=== PATIENT | female | born 1940 | race Hispanic/Latino ===

== ENCOUNTER → 2020-07-23 | Outpatient (CLI) | payer OTHER | END | disposition home or self-care (01) | LOC: RAH 08:51 | PROVIDERS: ATTEND Internal Medicine Gastroenterology | DX: R16.1 Splenomegaly, not elsewhere classified (principal); N26.1 Atrophy of kidney (terminal); N28.89 Other specified disorders of kidney and ureter; K74.3 Primary biliary cirrhosis | CPT/HCPCS: 76700; 93975 ==

== ENCOUNTER → 2021-01-17 | Outpatient (CLI) | payer OTHER | END | disposition home or self-care (01) | LOC: SHCH 13:59 | PROVIDERS: ATTEND Internal Medicine Cardiovascular Disease | DX: I08.1 Rheumatic disorders of both mitral and tricuspid valves (principal); R55 Syncope and collapse | CPT/HCPCS: 93306 ==

== ENCOUNTER → 2021-02-05 | Outpatient (CLI) | payer OTHER | END | disposition home or self-care (01) | LOC: OIH 09:28 | PROVIDERS: ATTEND Internal Medicine Cardiovascular Disease | DX: Z13.6 Encounter for screening for cardiovascular disorders (principal) | CPT/HCPCS: 75571 ==

== ENCOUNTER → 2021-09-01 | Outpatient (CLI) | payer MEDICARE | END | disposition home or self-care (01) | LOC: RAH 08:47 | PROVIDERS: ATTEND Internal Medicine Gastroenterology | DX: K74.3 Primary biliary cirrhosis (principal); N28.1 Cyst of kidney, acquired; R16.1 Splenomegaly, not elsewhere classified | CPT/HCPCS: 76700; 93975 ==

== ENCOUNTER → 2022-05-08 | Outpatient (CLI) | payer OTHER | END | disposition home or self-care (01) | LOC: RAH 13:36 | PROVIDERS: ATTEND Internal Medicine Cardiovascular Disease | DX: Z13.6 Encounter for screening for cardiovascular disorders (principal) | CPT/HCPCS: 75571 ==

== ENCOUNTER → 2022-06-17 | Outpatient (CLI) | payer MEDICARE | END | disposition home or self-care (01) | LOC: SHCH 11:18 | PROVIDERS: ATTEND Internal Medicine Cardiovascular Disease | DX: I34.0 Nonrheumatic mitral (valve) insufficiency (principal); R06.00 Dyspnea, unspecified | CPT/HCPCS: 93306 ==

== ENCOUNTER → 2022-06-20 | Outpatient (CLI) | payer MEDICARE ==
[~2022-06-20] MED LIST: REGADENOSON 0.4 MG/5 ML PF SYG IVP SCH
== END | disposition home or self-care (01) ==
LOC: SHCH 08:48
PROVIDERS: ATTEND Internal Medicine Cardiovascular Disease
DX: I25.10 Atherosclerotic heart disease of native coronary artery without angina pectoris (principal); R06.02 Shortness of breath
CPT/HCPCS: 78452; 93017; 96374; J2785; A9500 ×2

== ENCOUNTER → 2023-05-01 | Outpatient (CLI) | payer OTHER ==
[2023-05-01 12:27] LABS: BASOPHILS # (AUTO) 0.01 K/uL (0.00-0.20); BASOPHILS % (AUTO) 0.5 % (0.0-5.0); EOSINOPHILS # (AUTO) 0.05 K/uL (0.00-0.70); EOSINOPHILS % (AUTO) 2.4 % (0.0-8.0); HEMATOCRIT 37.9 % (36-48); LYMPHOCYTES # (AUTO) 0.6 K/uL (1.0-4.8); LYMPHOCYTES % (AUTO) 28.6 % (21.0-51.0); MEAN CORPUSCULAR HEMOGLOBIN 29.2 pg (27.0-33.0); MEAN CORPUSCULAR HGB CONC 32.5 g/dL (32.0-36.0); MONOCYTES # (AUTO) 0.2 K/uL (0.1-1.0); NEUTROPHILS # (AUTO) 1.3 K/uL (1.8-7.7); NEUTROPHILS % (AUTO) 59.5 % (40.0-77.0); PLATELET COUNT (AUTO) 87 K/uL (130-400); RED BLOOD CELL COUNT(AUTO) 4.21 MIL/uL (4.00-5.50); WHITE BLOOD COUNT (AUTO) 2.1 K/uL (4.8-10.8)
[2023-05-01 12:57] LABS: EOSINOPHILS % (MANUAL) 2 % (1-6); LYMPHOCYTES % (MANUAL) 25 % (22-44); MAN.DIFF COMMENT-IMPRESSION MANUAL DIFFERENTIAL; MONOCYTES % (MANUAL) 4 % (2-9); REACTIVE LYMPHOCYTES 3 % (0-0); SEGMENTED NEUTROPHILS % 66 % (40-70); TOTAL CELLS COUNTED 100
[2023-05-01 12:58] LABS: PLATELET MORPHOLOGY COMMENT DECREASED
[2023-05-01 13:06] LABS: ALBUMIN 3.7 g/dL (3.5-5.0); BILIRUBIN,TOTAL 1.1 mg/dL (0.2-1.0); CREATININE 1.2 mg/dL (0.5-1.5); POTASSIUM 3.5 mmol/L (3.5-5.1); TOTAL PROTEIN, SERUM 7.9 g/dL (6.0-8.3)
== END | disposition home or self-care (01) ==
LOC: LAB 10:55
PROVIDERS: ATTEND Physician Assistant
DX: I10 Essential (primary) hypertension (principal); I34.0 Nonrheumatic mitral (valve) insufficiency; R06.00 Dyspnea, unspecified
CPT/HCPCS: 36415; 80053; 83880; 85025

== ENCOUNTER → 2023-06-11 | Outpatient (CLI) | payer OTHER ==
[2023-06-11 11:22] LABS: CREATININE 1.1 mg/dL (0.5-1.5)
== END | disposition home or self-care (01) ==
LOC: LAB 10:20
PROVIDERS: ATTEND Internal Medicine Gastroenterology
DX: K74.3 Primary biliary cirrhosis (principal); R93.3 Abnormal findings on diagnostic imaging of other parts of digestive tract
CPT/HCPCS: 36415; 82565; 84520; 86316

== ENCOUNTER → 2023-06-14 | Outpatient (CLI) | payer OTHER ==
[~2023-06-14] MED LIST changes: +IOHEXOL-350 75 ML VIAL IV ONE; -REGADENOSON 0.4 MG/5 ML PF SYG IVP SCH
== END | disposition home or self-care (01) ==
LOC: RAH 08:03
PROVIDERS: ATTEND Internal Medicine Gastroenterology
DX: N28.1 Cyst of kidney, acquired (principal); R93.3 Abnormal findings on diagnostic imaging of other parts of digestive tract; K74.3 Primary biliary cirrhosis; R16.1 Splenomegaly, not elsewhere classified
CPT/HCPCS: 74170; Q9967

== ENCOUNTER → 2023-10-10 | Outpatient (CLI) | payer OTHER | END | disposition home or self-care (01) | LOC: SHCH 12:40 | PROVIDERS: ATTEND Internal Medicine Cardiovascular Disease | DX: I08.0 Rheumatic disorders of both mitral and aortic valves (principal); I10 Essential (primary) hypertension | CPT/HCPCS: 93306 ==

== ENCOUNTER 2023-10-25 06:43 | Day surgery (SDC) | payer OTHER ==
[2023-10-23 13:11] LABS: ADD UA MICROSCOPIC YES; APPEARANCE,URINE CLOUDY (CLEAR); BILIRUBIN,URINE NEGATIVE (NEGATIVE); COLOR,URINE LIGHT-YELLOW (YELLOW); GLUCOSE, URINE (UA) NEGATIVE (NEGATIVE); KETONES,URINE NEGATIVE (NEGATIVE); LEUKOCYTE ESTERASE ,URINE 500 Leu/uL (NEGATIVE); NITRATE,URINE 2+ (NEGATIVE); OCCULT BLOOD,URINE NEGATIVE (NEGATIVE); PH,URINE 7.5 (5.0-8.0); PROTEIN,URINE NEGATIVE (NEGATIVE); UROBILINOGEN,URINE 0.2 mg/dL (0.2-1.0)
[2023-10-23 13:12] LABS: BASOPHILS # (AUTO) 0.01 K/uL (0.00-0.20); BASOPHILS % (AUTO) 0.4 % (0.0-5.0); CREATININE 1.1 mg/dL (0.5-1.0); EOSINOPHILS # (AUTO) 0.02 K/uL (0.00-0.70); EOSINOPHILS % (AUTO) 0.7 % (0.0-8.0); HEMATOCRIT 37.4 % (36-48); IMMATURE GRANULOCYTE ABSOLUTE 0.01 K/uL (0-1); LYMPHOCYTES # (AUTO) 0.7 K/uL (1.0-4.8); LYMPHOCYTES % (AUTO) 23.2 % (21.0-51.0); MEAN CORPUSCULAR HEMOGLOBIN 29.9 pg (27.0-33.0); MEAN CORPUSCULAR HGB CONC 34.5 g/dL (32.0-36.0); MEAN CORPUSCULAR VOLUME 86.6 fL (79-99); MONOCYTES # (AUTO) 0.1 K/uL (0.1-1.0); MONOCYTES % (AUTO) 4.6 % (3.0-13.0); NEUTROPHILS % (AUTO) 70.7 % (40.0-77.0); PLATELET COUNT (AUTO) 76 K/uL (130-400); POTASSIUM 3.8 mmol/L (3.5-5.1); RED BLOOD CELL COUNT(AUTO) 4.32 MIL/uL (4.00-5.50); RED CELL DISTRIBUTION WIDTH 14.4 % (11.0-15.5); WHITE BLOOD COUNT (AUTO) 2.9 K/uL (4.8-10.8)
[2023-10-23 13:15] LABS: INR 0.97 (0.85-1.15); PROTHROMBIN TIME 11.5 SEC (9.6-11.6)
[2023-10-23 13:16] LABS: PARTIAL THROMBOPLASTIN TIME 32.1 SEC (26.3-35.5)
[2023-10-23 13:17] VITALS: BP 144/74; PULSE 72; RESP 16
[2023-10-23 13:17] LABS: BACTERIA,URINE MANY /HPF (None Seen); MUCUS,URINE RARE LPF (None Seen); SQUAMOUS EPITHELIAL CELL,UR FEW /HPF (0-2); WBC,URINE 51-100 /HPF (0-1)
[2023-10-23 13:25] LABS: B-TYPE NATRIURETIC PEPTIDE 74 pg/mL (0-100)
[2023-10-23 13:35] LABS: BASOPHILS % (MANUAL) 2 % (0-2); LYMPHOCYTES % (MANUAL) 22 % (22-44); MONOCYTES % (MANUAL) 2 % (2-9); SEGMENTED NEUTROPHILS % 74 % (40-70); TOTAL CELLS COUNTED 100
[2023-10-23 13:36] LABS: PLATELET MORPHOLOGY COMMENT DECREASED
[2023-10-23 13:37] LABS: WBC MORPHOLOGY TOXIC GRAN
[2023-10-23 13:39] LABS: MAN.DIFF COMMENT-IMPRESSION MANUAL DIFFERENTIAL
[~2023-10-25] VITALS: Ht 157.5 cm; Wt 53.9 kg
[~2023-10-25 06:43] MED LIST changes: +CLIN-141 PO; +FERS325 PO; +FURO20TA4 PO; -IOHEXOL-350 75 ML VIAL IV ONE; +OMEP40CA21 PO; +POTA-364 PO; +URSO300C4 PO
[2023-10-25 07:00] VITALS: BP 145/72; PULSE 82; RESP 17
[2023-10-25] MEDS ORDERED: LEVO750T68 PO (07:58)
[2023-10-25] MEDS: 0.9%NACL 1000ML 1,000 ML IV ONE (08:05)
[2023-10-25 08:32] LABS: APPEARANCE,URINE CLOUDY (CLEAR); BILIRUBIN,URINE NEGATIVE (NEGATIVE); COLOR,URINE YELLOW (YELLOW); GLUCOSE, URINE (UA) NEGATIVE (NEGATIVE); KETONES,URINE NEGATIVE (NEGATIVE); LEUKOCYTE ESTERASE ,URINE 500 Leu/uL (NEGATIVE); NITRATE,URINE 2+ (NEGATIVE); OCCULT BLOOD,URINE NEGATIVE (NEGATIVE); PH,URINE 6.5 (5.0-8.0); PROTEIN,URINE NEGATIVE (NEGATIVE); UROBILINOGEN,URINE 0.2 mg/dL (0.2-1.0)
[2023-10-25 08:34] LABS: ADD UA MICROSCOPIC YES
[2023-10-25 08:36] LABS: BACTERIA,URINE MANY /HPF (None Seen); MUCUS,URINE RARE LPF (None Seen); SQUAMOUS EPITHELIAL CELL,UR RARE /HPF (0-2); TRANSITIONAL EPI CELLS,URINE RARE /HPF (None Seen); WBC,URINE 51-100 /HPF (0-1)
[2023-10-25] MEDS ORDERED: BUPIVACAINE/PF 0.25% 30ML VIAL IJ ONE (11:13)
[2023-10-25] MEDS ORDERED: MEPERIDINE-PF 25 MG/ML SYG ONE ×3 (11:13→12:18)
[2023-10-25] MEDS ORDERED: MIDAZOLAM HCL 1 MG/ML 2ML VIAL ONE ×3 (11:13→12:18)
[2023-10-25] MEDS ORDERED: LIDOCAINE HCL 1% MDV 50ML VIAL ONE (11:13)
[2023-10-25] MEDS ORDERED: CEFAZOLIN SODIUM 1 GM VIAL ONE (11:13)
[2023-10-25] MEDS ORDERED: VANCOMYCIN 1G/250ML KIT 500 ML IV ONE (11:37)
[2023-10-25] MEDS ORDERED: THROMBIN-JMI 5000 UNIT/VIAL TP ONE (12:01)
[2023-10-25 13:30] VITALS: BP 145/52; PULSE 76; RESP 14
[2023-10-25] MEDS ORDERED: DEXTROSE 50%-WATER 50 ML DISP.SYRIN IV PRN (13:30)
[2023-10-25 13:45] VITALS: BP 149/62; PULSE 71; RESP 14
[2023-10-25] MEDS: SULFAMETHOX-TMP DS 800/160 TAB PO ONE (13:45)
[2023-10-25 14:00] VITALS: BP 152/63; PULSE 71; RESP 15
[2023-10-25 14:15] VITALS: BP 143/64; PULSE 68; RESP 15
[2023-10-25 14:30] VITALS: BP 148/61; PULSE 72; RESP 14
[2023-10-25] MEDS: ACETAMINOPHEN WITH CODEINE 1 TAB TAB PO ONE (14:31)
[2023-10-25] MEDS ORDERED: INSULIN HUMULIN R 100 UNIT/ML 3ML SQ SCH (16:30)
[2023-10-28] MEDS ORDERED: LORA10TA7 PO (08:49)
[2023-10-28] MEDS ORDERED: MAGN200T4 PO (08:49)
[2023-10-28] MEDS ORDERED: SULF1TAB42 PO (14:56)
== END 2023-10-25 14:50 | disposition home or self-care (01) ==
LOC: DAH 06:43
PROVIDERS: ATTEND Internal Medicine Cardiovascular Disease
DX: T82.897A Other specified complication of cardiac prosthetic devices, implants and grafts, initial encounter (principal); I25.10 Atherosclerotic heart disease of native coronary artery without angina pectoris; K74.5 Biliary cirrhosis, unspecified; K21.9 Gastro-esophageal reflux disease without esophagitis; Z95.0 Presence of cardiac pacemaker; Z82.49 Family history of ischemic heart disease and other diseases of the circulatory system; Z80.9 Family history of malignant neoplasm, unspecified; Z98.49 Cataract extraction status, unspecified eye
CPT/HCPCS: 80048; 83880; 85025; 85610; 85730; 87088; 81001 ×2; 36415 ×2; 93005; 17999; 86850; 86900; 86901; 87077; 87186; P9034; J0665; J7030; J2250 ×3; J3370; J3490 ×2; J2175 ×3; A4215; A4222; A4221; A4663; A4216; A4606; A4223 ×3; 99156; 99157; J0690

== ENCOUNTER → 2024-08-06 | Outpatient (CLI) | payer OTHER ==
[~2024-08-06] MED LIST changes: -CLIN-141 PO; +LORA10TA7 PO; +MAGN200T4 PO; +SULF1TAB42 PO
--- NOTE | 2024-08-07 14:29 | HMCSR ---
APPROVED REPORT EXAM: Two-dimensional and M-mode echocardiogram with Doppler and color Doppler. INDICATION Dyspnea 2D Dimensions RVDd3.5 cmLVEF(%)57.1 (>50%)LVED Vol(simp.)59.0 mL IVSd1.0 (0.7-1.1cm)FS(%)29 %LVES Vol(simp.)25.0 mL LVDd3.8 (3.8-5.6cm)Ao Root(2D)2.5 (2.0-3.7cm)LVEF(%, simp.)57 % PWd1.0 (0.7-1.1cm)LVOT diam1.8 (1.8-2.4cm)LA ESV INDEX (BP)33.62 mL/m2 LVDs2.5 (2.5-4.0cm)IVC diam1.3 cm Aortic Valve AoV Vmax1.3 m/[place] Peak GR6.8 mmHgLVOT Vmax0.9 m/s AoV VTI0.3 mAo Mean GR3.5 mmHgLVOT VTI0.22 m KARELY (VMAX)2.0 cm2AVA (VTI) 2.0 cm2 Mitral Valve MV E Mwwe195.1 cm/sDECEL Kick207 msMV Peak GR9 mmHg MV A Qhzx354.4 cm/sP 1/2 T40 msMV Mean GR5 mmHg E/A ratio0.7MVA (PHT)5.5 cm2MVA (VTI)2.0 cm2 MR Max PG95 mmHg TDI E/E' Dzzkgod07.3 Tricuspid Valve TR Vmax2.8 m/sRAP (EST) 3 tlIwKTEW45.2 mmHg TR Peak GR31.2 mmHg Left Ventricle Left ventricular cavity size is normal. There is normal LV segmental wall motion. There is normal lef t ventricular wall thickness. LVEF is 55-60%. No left ventricle thrombus noted on this study. E/A janina w is fused. Indeterminate diastolic dysfunction. Right Ventricle The right ventricle is normal size. The right ventricular systolic function is normal. Atria The left atrium is borderline dilated. The right atrium size is normal. Aortic Valve Aortic valve leaflets are sclerotic but open well. Trace aortic regurgitation. Calculated aortic valv e area is 2.0 cm2 with maximum pressure gradient of 6.9 mmHg and mean pressure gradient of 3.5 mmHg. Mitral Valve Mitral valve leaflets are mildly calcified. Mitral annular calcification is mild to moderate. Mitral regurgitation is trace to mild. There is no mitral valve stenosis. Tricuspid Valve The tricuspid valve leaflets appear normal. There is trace to mild tricuspid regurgitation. Right serg tricular systolic pressure is estimated at 30-40 mmHg. Pulmonic Valve Pulmonic valve is not well visualized. Great Vessels The aortic root is normal in size. The IVC is normal in size and collapses >50% with inspiration. Pericardium No pericardial effusion. Conclusion Left ventricular cavity size is normal. LVEF is 55-60%. E/A flow is fused. Indeterminate diastolic dysfunction. The right ventricle is normal size. The left atrium is borderline dilated. Aortic valve leaflets are sclerotic but open well. Trace aortic regurgitation. Calculated aortic valve area is 2.0 cm2 with maximum pressure gradient of 6.9 mmHg and mean pressure gradient of 3.5 mmHg. Mitral valve leaflets are mildly calcified. Mitral annular calcification is mild to moderate. Mitral regurgitation is trace to mild. There is no mitral valve stenosis. There is trace to mild tricuspid regurgitation. Right ventricular systolic pressure is estimated at 30-40 mmHg. The aortic root is normal in size. The IVC is normal in size and collapses >50% with inspiration. No pericardial effusion.
== END | disposition home or self-care (01) ==
LOC: SHCH 08:14
PROVIDERS: ATTEND Internal Medicine Cardiovascular Disease
DX: I08.3 Combined rheumatic disorders of mitral, aortic and tricuspid valves (principal); R06.00 Dyspnea, unspecified
CPT/HCPCS: 93306

== ENCOUNTER → 2024-08-08 | Outpatient (CLI) | payer OTHER ==
[2024-08-08 11:51] LABS: BASOPHILS # (AUTO) 0.01 K/uL (0.00-0.20); BASOPHILS % (AUTO) 0.4 % (0.0-5.0); EOSINOPHILS # (AUTO) 0.03 K/uL (0.00-0.70); EOSINOPHILS % (AUTO) 1.3 % (0.0-8.0); HEMATOCRIT 39.5 % (36-48); LYMPHOCYTES # (AUTO) 0.5 K/uL (1.0-4.8); LYMPHOCYTES % (AUTO) 22.7 % (21.0-51.0); MEAN CORPUSCULAR HEMOGLOBIN 29.3 pg (27.0-33.0); MEAN CORPUSCULAR HGB CONC 32.4 g/dL (32.0-36.0); MEAN CORPUSCULAR VOLUME 90.4 fL (79-99); MONOCYTES # (AUTO) 0.1 K/uL (0.1-1.0); MONOCYTES % (AUTO) 5.8 % (3.0-13.0); NEUTROPHILS # (AUTO) 1.6 K/uL (1.8-7.7); NEUTROPHILS % (AUTO) 69.8 % (40.0-77.0); PLATELET COUNT (AUTO) 97 K/uL (130-400); RED BLOOD CELL COUNT(AUTO) 4.37 MIL/uL (4.00-5.50); RED CELL DISTRIBUTION WIDTH 14.4 % (11.0-15.5); WHITE BLOOD COUNT (AUTO) 2.3 K/uL (4.8-10.8)
[2024-08-08 12:14] LABS: ALBUMIN 3.7 g/dL (3.5-5.0); BILIRUBIN,TOTAL 1.3 mg/dL (0.2-1.0); POTASSIUM 4.4 mmol/L (3.5-5.1); TOTAL PROTEIN, SERUM 7.9 g/dL (6.0-8.3)
[2024-08-08 12:45] LABS: EOSINOPHILS % (MANUAL) 2 % (1-6); LYMPHOCYTES % (MANUAL) 26 % (22-44); MAN.DIFF COMMENT-IMPRESSION MANUAL DIFFERENTIAL; MONOCYTES % (MANUAL) 2 % (2-9); SEGMENTED NEUTROPHILS % 70 % (40-70); TOTAL CELLS COUNTED 50
[2024-08-08 12:48] LABS: PLATELET MORPHOLOGY COMMENT MARKED DECREASE; WBC MORPHOLOGY NORMAL
== END | disposition home or self-care (01) ==
LOC: LAB 11:13
PROVIDERS: ATTEND Internal Medicine Cardiovascular Disease
DX: I10 Essential (primary) hypertension (principal); E78.5 Hyperlipidemia, unspecified
CPT/HCPCS: 36415; 80053; 84145; 85025; 86140; 87040

== ENCOUNTER 2024-09-12 06:12 | Day surgery (SDC) | payer OTHER ==
[2024-09-09 08:55] VITALS: BP 139/61; PULSE 77; RESP 18; TEMP 97.2
[2024-09-09 09:06] LABS: BASOPHILS # (AUTO) 0.01 K/uL (0.00-0.20); BASOPHILS % (AUTO) 0.4 % (0.0-5.0); EOSINOPHILS # (AUTO) 0.04 K/uL (0.00-0.70); EOSINOPHILS % (AUTO) 1.7 % (0.0-8.0); HEMATOCRIT 37.9 % (36-48); LYMPHOCYTES # (AUTO) 0.5 K/uL (1.0-4.8); LYMPHOCYTES % (AUTO) 21.4 % (21.0-51.0); MEAN CORPUSCULAR HEMOGLOBIN 29.2 pg (27.0-33.0); MEAN CORPUSCULAR HGB CONC 32.5 g/dL (32.0-36.0); MONOCYTES # (AUTO) 0.1 K/uL (0.1-1.0); MONOCYTES % (AUTO) 5.2 % (3.0-13.0); NEUTROPHILS # (AUTO) 1.6 K/uL (1.8-7.7); NEUTROPHILS % (AUTO) 71.3 % (40.0-77.0); PLATELET COUNT (AUTO) 84 K/uL (130-400); RED BLOOD CELL COUNT(AUTO) 4.21 MIL/uL (4.00-5.50); RED CELL DISTRIBUTION WIDTH 14.8 % (11.0-15.5); WHITE BLOOD COUNT (AUTO) 2.3 K/uL (4.8-10.8)
[2024-09-09 09:13] LABS: INR 1.07 (0.85-1.15); PROTHROMBIN TIME 11.3 SEC (9.6-11.6)
[2024-09-09 09:56] LABS: CREATININE 1.1 mg/dL (0.5-1.0); POTASSIUM 3.9 mmol/L (3.5-5.1)
[2024-09-09 10:06] LABS: LYMPHOCYTES % (MANUAL) 22 % (22-44); MAN.DIFF COMMENT-IMPRESSION MANUAL DIFFERENTIAL; MONOCYTES % (MANUAL) 6 % (2-9); SEGMENTED NEUTROPHILS % 72 % (40-70); TOTAL CELLS COUNTED 50
[2024-09-09 10:08] LABS: PLATELET MORPHOLOGY COMMENT MARKED DECREASE
[2024-09-12] VITALS (7 sets, daily range): BP systolic 109–159; BP diastolic 46–68; PULSE 64–79; RESP 13–16; TEMP 98.1
[~2024-09-12] VITALS: Ht 154.9 cm; Wt 53.0 kg
[~2024-09-12 06:12] MED LIST changes: -FERS325 PO; -LORA10TA7 PO; -MAGN200T4 PO; -SULF1TAB42 PO
[2024-09-12] MEDS: LIDOCAINE HCL 2% VISCOUS 15 ML UDCUP PO ONE (06:30)
--- NOTE | 2024-09-12 07:10 | EKG ---
[facility] – [place], [place] Test Date: 2024-09-12 Test Time: 06:33:42 Pat Name: FUENTES LAKHANI Department: [facility] Room: [facility] Gender: F Auto Parker: [id number] : 1940 Requested By: Pieter HUSAIN Order Number: [id number] Reading MD: Bob Fuentes Measurements Intervals [place] Rate: 67 P: 84 WA: 217 QRS: 45 QRSD: 113 T: 58 QT: 416 QTc: 441 Interpretive Statements Atrial-sensed ventricular-paced rhythm Compared to ECG 10/27/2023 12:02:35 Sinus tachycardia no longer present Intraventricular conduction delay no longer present Early repolarization no longer present Electronically Signed On 09-14-2024 18:32:29 CDT by Bob Fuentes Please click the below link to view image of tracing.
[2024-09-12] MEDS ORDERED: [UNRECOGNIZED DRUG - OTHER] (07:24)
[2024-09-12] MEDS ORDERED: CYAN-35 PO (07:24)
[2024-09-12] MEDS ORDERED: ASCO100031 PO (07:24)
[2024-09-12] MEDS ORDERED: METO-408 PO (07:24)
[2024-09-12] MEDS: 0.9%NACL 1000ML 1,000 ML IV SCH (08:30)
[2024-09-12] MEDS: MIDAZOLAM HCL 1 MG/ML 2ML VIAL IVP ONE (08:30)
[2024-09-12] MEDS: FENTanyl CITRate PF 50 MCG/1 ML 2ML VIAL IVP ONE (08:32)
--- NOTE | 2024-09-12 10:43 | HMCSR ---
APPROVED REPORT EXAM: Transesophageal echocardiogram with color flow Doppler. INDICATION ICD: Nonrheumatic mitral valve insuffiency PROCEDURE After obtaining informed consent, patient underwent transesophageal echo in the day patient room 14. 15 mL 2% Viscous Lidocaine was given as a topical anesthetic prior to the administration of the consc ious sedation. Type of Sedation: Conscious Sedation Sedation was administered by Gavin Mccall RN. Sedation was achieved with refer to chart intravenously. Transesophageal probe was inserted and advanced into esophagus without difficulty by Dr. Hudson. GARLAND was performed and images were obtained, probe was removed without complications. Throughout the procedure, the blood pressure, pulse oximetry, cardiac rhythm, and rate were monitored . The patient tolerated the procedure without adverse effects. Recovery from conscious sedation was une ventful and vital signs were stable. Left Ventricle Left ventricular cavity size is normal. There is normal LV segmental wall motion. There is normal lef t ventricular wall thickness. LVEF is 55%. No left ventricle thrombus noted on this study. Right Ventricle The right ventricle is normal size. Device lead is present in the right ventricle, no vegetations not ed. Atria The left atrium size is normal. No thrombus is visualized in the left atrium or appendage. No evidenc e of PFO by color flow Doppler. Atrial septum is mildly aneurysmal. The right atrium size is normal. Aortic Valve The aortic valve is trileaflet. Aortic valve leaflets are sclerotic but open well. No aortic regurgit ation is present. There is no aortic valvular vegetation. There is no aortic valvular stenosis. Mitral Valve The mitral valve is calcified but opens well. Calcified tertiary chord. Mitral regurgitation is mild. No mitral valve vegetation. There is no mitral valve stenosis. Tricuspid Valve Tricuspid valve is grossly normal in structure and function. There is trace tricuspid valve regurgita tion noted. Pulmonic Valve Pulmonic valve is grossly normal in structure. Great Vessels The aortic root is normal in size. Pericardium No pericardial effusion. Conclusion Left ventricular cavity size is normal. LVEF is 55%. The right ventricle is normal size. Device lead is present in the right ventricle, no vegetations noted. The left atrium size is normal. No thrombus is visualized in the left atrium or appendage. No evidence of PFO by color flow Doppler. Atrial septum is mildly aneurysmal. The aortic valve is trileaflet. Aortic valve leaflets are sclerotic but open well. No aortic regurgitation is present. There is no aortic valvular vegetation. The mitral valve is calcified but opens well. Mitral regurgitation is mild. Calcified tertiary chord. There is trace tricuspid valve regurgitation noted. The aortic root is normal in size. No pericardial effusion.
== END 2024-09-12 09:25 | disposition home or self-care (01) ==
LOC: DAH 06:12 → EDSTATUS 08:00 → DAH 09:25
PROVIDERS: ATTEND Internal Medicine Cardiovascular Disease
DX: I34.0 Nonrheumatic mitral (valve) insufficiency (principal); I10 Essential (primary) hypertension; K21.9 Gastro-esophageal reflux disease without esophagitis; K74.60 Unspecified cirrhosis of liver; D61.818 Other pancytopenia; J44.9 Chronic obstructive pulmonary disease, unspecified; E78.5 Hyperlipidemia, unspecified; R06.02 Shortness of breath; R05.9 Cough, unspecified; R50.9 Fever, unspecified; Z86.16 Personal history of COVID-19; Z98.49 Cataract extraction status, unspecified eye; Z95.0 Presence of cardiac pacemaker; Z79.899 Other long term (current) drug therapy
CPT/HCPCS: 80048; 85025; 85610; 85730; 36415; 93312; 93325; 93005; J3010; J7030; J2250; A4615; A4215; A4657; A4222; A4221; A4663; A4216; A4606; A4223 ×3; 99152; G0500

== ENCOUNTER → 2025-03-03 | Outpatient (CLI) | payer OTHER ==
[~2025-03-03] MED LIST changes: +ASCO10004 PO; +CYAN-35 PO; +METO-408 PO; -OMEP40CA21 PO; +[UNRECOGNIZED DRUG - OTHER]
--- NOTE | 2025-03-05 12:31 | HMCIMG ---
EXAM: CT Chest Without Contrast CLINICAL HISTORY: Chronic cough. Solitary pulmonary nodule. TECHNIQUE: Thin collimated axial CT images of the chest were obtained with sagittal and coronal reformatted images also submitted. CT scan done according to ALARA (As Low as Reasonably Achievable). CONTRAST USED: None. COMPARISON: CT dated November 01, 2023. FINDINGS: Partially imaged, partially calcified breast nodules/masses. Recommend dedicated breast imaging for further evaluation. No collapse or consolidation. Few small peribronchovascular ground glass nodules in the left lower lobe. Stable 4 mm nodule in the left lower lobe. No pleural effusions. No pericardial effusion. The heart size is within normal limits. Calcification of the coronary arteries with atherosclerotic changes in the aorta. Pace maker in situ. No axillary, supraclavicular, or mediastinal lymphadenopathy. No focal thyroid abnormality. Limited views of the upper abdomen demonstrate chronic hepatic parenchymal disease with splenomegaly and moderate hiatus hernia. The bones under view show degenerative spondylotic changes in the spine. IMPRESSION: 1. Few peribronchovascular nodules in the left lower lobe likely mild inflammatory or infective process. 2. Stable left lung nodule. Lung RADS category 2. Continue annual screening with LDCT. 3. Coronary artery disease with atherosclerosis. 4. Chronic hepatic parenchymal disease with splenomegaly and moderate hiatus hernia. Further evaluation with MR imaging. 5. Partially calcified breast nodules/masses may be further characterized with dedicated breast imaging if warranted clinically. Compared to previous CT dated November 01, 2023, there is interval appearance of the peribronchovascular nodules in the left lower lobe. Rest of the findings remain unchanged. /[place]
== END | disposition home or self-care (01) ==
LOC: RAH 13:51
PROVIDERS: ATTEND Internal Medicine
DX: I25.10 Atherosclerotic heart disease of native coronary artery without angina pectoris (principal); K44.9 Diaphragmatic hernia without obstruction or gangrene; R91.8 Other nonspecific abnormal finding of lung field; R16.1 Splenomegaly, not elsewhere classified; K76.89 Other specified diseases of liver; R05.3 Chronic cough; R91.1 Solitary pulmonary nodule
CPT/HCPCS: 71250

== ENCOUNTER → 2025-03-19 | Outpatient (CLI) | payer OTHER ==
--- NOTE | 2025-03-20 06:47 | HMCIMG ---
EXAM: CR Pelvis and Right Hip, 3 views. CLINICAL HISTORY: Pain. COMPARISON: None provided. FINDINGS: No acute fracture or aggressive appearing osseous lesion. Joint spaces are within normal limits. The soft tissues are unremarkable. Generalized osteopenia is seen. Radio opacities is seen in pelvis region. IMPRESSION: Generalized osteopenia is seen. Radio opacities is seen in pelvis region. /Sebastian
== END | disposition home or self-care (01) ==
LOC: RAH 11:16
PROVIDERS: ATTEND Internal Medicine
DX: M85.88 Other specified disorders of bone density and structure, other site (principal); M25.551 Pain in right hip
CPT/HCPCS: 73502